=== PATIENT | female | born 1990 | race Two or more races ===

== ENCOUNTER 2016-08-13 15:37 | Emergency (ER) | payer MEDICAID ==
[2016-08-13] MEDS ORDERED: DIPHENHYDRAMINE 50 MG/ML, 1ML ONE (17:21)
[2016-08-13] MEDS ORDERED: METOCLOPRAMIDE 5 MG/ML, 2ML ONE (17:21)
[2016-08-13] MEDS ORDERED: LORazepam 2 MG/ML, 1ML ONE (17:21)
[2016-08-15 13:42] LABS: BLOOD UREA NITROGEN 11 mg/dL (7-18)
== END 2016-08-13 20:26 | disposition home or self-care (01) ==
LOC: ED 15:37
DX: G43.C0 Periodic headache syndromes in child or adult, not intractable (principal); R06.00 Dyspnea, unspecified; F41.1 Generalized anxiety disorder
CPT/HCPCS: 36415; 70450; 71010; 80048; 82040; 85025; 93005